=== PATIENT | female | born 1975 | race Hispanic/Latino ===

== ENCOUNTER 2022-07-01 01:13 | Emergency (ER) | payer OTHER, SELFPAY ==
[2022-07-01] MEDS ORDERED: Morphine 4 MG/ML VIAL ONE (01:43)
[2022-07-01] MEDS ORDERED: Ondansetron PF 4 MG/2 ML Vial ONE (03:14)
[2022-07-01] MEDS ORDERED: HYDROcodone/Acetaminophen 5/325 mg Tablet ONE (03:15)
== END 2022-07-01 03:48 | disposition home or self-care (01) ==
LOC: CSHERS 01:13
DX: N83.202 Unspecified ovarian cyst, left side (principal); N83.201 Unspecified ovarian cyst, right side; K21.9 Gastro-esophageal reflux disease without esophagitis; Z87.891 Personal history of nicotine dependence
CPT/HCPCS: 76856; 96374; 96375; J2270; J2405